=== PATIENT | female | born 1985 | race Caucasian/White ===

== ENCOUNTER 2016-09-18 16:38 | Emergency (ER) | payer MEDICAID ==
[~2016-09-18] VITALS: Ht 167.6 cm; Wt 63.6 kg
[~2016-09-18 16:38] MED LIST: IBUP-1547 PO; QUET25TA PO
[2016-09-18] MEDS ORDERED: DIAZEPAM 5 MG TABLET PO ONE (18:00)
[2016-09-18 18:21] VITALS: BP 154/91
== END 2016-09-18 19:02 | disposition home or self-care (01) ==
LOC: EMS 16:39
DX: F41.9 Anxiety disorder, unspecified (principal)
CPT/HCPCS: 99284

== ENCOUNTER 2016-11-20 18:01 | Emergency (ER) | payer MEDICAID ==
[~2016-11-20] VITALS: Ht 162.6 cm; Wt 65.9 kg
[2016-11-20 19:11] LABS: BASOPHILS % (AUTO) 0.6 % (0.0-2.0); EOSINOPHILS % (AUTO) 0.5 % (1.0-6.0); HEMATOCRIT 38.2 % (36-46); LYMPHOCYTES # (AUTO) 0.9 K/uL (1.0-4.8); LYMPHOCYTES % (AUTO) 9.8 % (22.0-44.0); MEAN CORPUSCULAR HEMOGLOBIN 29.4 pg (26.0-34.0); MEAN CORPUSCULAR VOLUME 87 fL (80-100); MONOCYTES # (AUTO) 0.6 K/uL (0.1-1.0); NEUTROPHILS # (AUTO) 7.9 K/uL (1.8-7.7); NEUTROPHILS % (AUTO) 83.1 % (40.0-70.0); PLATELET COUNT (AUTO) 258 K/uL (150-450); RED BLOOD CELL COUNT(AUTO) 4.41 MIL/uL (4.00-5.20); RED CELL DISTRIBUTION WIDTH 13.7 % (11.5-14.5); WHITE BLOOD COUNT (AUTO) 9.6 K/uL (4.5-11.0)
[2016-11-20 19:20] LABS: ANION GAP 6 mmol/L (8-16); CALCIUM, TOTAL 8.3 mg/dL (8.8-10.5); CARBON DIOXIDE 29 mmol/L (22-29); CHLORIDE 104 mmol/L (98-107); CREATININE 0.77 mg/dL (0.60-1.30); GLOMERULAR FILTR. RATE CALC > 60 mL/min (>60); POTASSIUM 3.4 mmol/L (3.5-5.1); SODIUM SERUM 139 mmol/L (136-145); UREA NITROGEN, BLOOD 8 mg/dL (7-18)
[2016-11-20 19:26] LABS: ALANINE AMINOTRANSFERASE 292 U/L (12-78); ALBUMIN 3.1 g/dL (3.4-5.0); AMYLASE 83 U/L (25-115); ASPARTATE AMINOTRANSFERASE 508 U/L (15-37); BILIRUBIN,TOTAL 0.5 mg/dL (0.1-1.0); TOTAL PROTEIN, SERUM 6.6 g/dL (6.4-8.2)
[2016-11-20 19:44] VITALS: BP 126/80
[2016-11-20 20:42] LABS: APPEARANCE,URINE TURBID (CLEAR); GLUCOSE, URINE (UA) NEGATIVE (NEGATIVE); KETONES,URINE NEGATIVE (NEGATIVE); LEUKOCYTE ESTERASE ,URINE NEGATIVE (NEGATIVE); OCCULT BLOOD,URINE NEGATIVE (NEGATIVE); PH,URINE 7.5 (5.0-8.0); PROTEIN,URINE NEGATIVE (NEGATIVE)
[2016-11-20 20:43] LABS: ADD UA MICROSCOPIC NO
[2016-11-20] MEDS ORDERED: ONDANSETRON HCL 4 MG/2 ML VIAL IM ONE (21:00)
[2016-11-20] MEDS ORDERED: ONDANSETRON HCL 4 MG TABLET PO ONE (21:15)
== END 2016-11-20 21:20 | disposition home or self-care (01) ==
LOC: EMS 18:03
DX: K80.20 Calculus of gallbladder without cholecystitis without obstruction (principal)
CPT/HCPCS: 36415; 76700; 80053; 81003; 82150; 83690; 84703; 85025; 99285; Q0162

== ENCOUNTER 2017-04-12 11:52 | Emergency (ER) | payer MEDICAID ==
[~2017-04-12] VITALS: Ht 162.6 cm; Wt 63.6 kg
[~2017-04-12 11:52] MED LIST changes: -IBUP-1547 PO
[2017-04-12] MEDS ORDERED: ONDANSETRON HCL 4 MG TABLET PO ONE (13:45)
[2017-04-12] MEDS ORDERED: HYDROCODONE/ACETAMINOPHEN 5-325 MG TABLET PO ONE ×2 (13:45→20:45)
[2017-04-12 20:30] VITALS: BP 126/86
== END 2017-04-12 21:00 | disposition home or self-care (01) ==
LOC: EMS 11:55
DX: R51 Headache (principal)
CPT/HCPCS: 70450; 81002; 81025; 99284; Q0162

== ENCOUNTER 2018-05-20 15:57 | Inpatient (IN) | payer MEDICAID, OTHER ==
[~2018-05-20] VITALS: Ht 160 cm; Wt 61.3 kg
[2018-05-20] MEDS ORDERED: LORazepam 2 MG TABLET PO PRN (18:15)
[2018-05-20] MEDS ORDERED: TUBERCULIN, PURIFIED PROTEIN DERIVATIVE 5 TU/0.1 ML SYG ID ONE (18:15)
[2018-05-20] MEDS ORDERED: OLANZapine 5 MG RAPDIS TABLET PO PRN (18:15)
[2018-05-20] MEDS ORDERED: GuaiFENesin/D-METHORPHAN [SUGAR-FREE] 200-20MG/10 ML SYRUP UDCUP PO PRN (18:15)
[2018-05-20] MEDS ORDERED: PROMETHAZINE HCL 25 MG TABLET PO PRN (18:15)
[2018-05-20] MEDS ORDERED: ZOLPIDEM TARTRATE 10 MG TABLET PO PRN (18:15)
[2018-05-20] MEDS ORDERED: MAGNESIUM HYDROXIDE SUSPENSION 30 ML UDCUP PO PRN (18:15)
[2018-05-20] MEDS ORDERED: HydrOXYzine PAMOATE 50 MG CAPSULE PO PRN (18:15)
[2018-05-20] MEDS ORDERED: ACETAMINOPHEN 325 MG TABLET PO PRN (18:15)
[2018-05-20] MEDS ORDERED: MAG HYDROX/AL HYDROX/SIMETH ES 30 ML SUSPENSION UDCUP PO PRN (18:15)
[2018-05-20] MEDS ORDERED: LOPERAMIDE HCL 2 MG CAPSULE PO PRN (18:15)
[2018-05-20 18:49] LABS: APPEARANCE,URINE CLOUDY (CLEAR); BILIRUBIN,URINE NEGATIVE (NEGATIVE); GLUCOSE, URINE (UA) NEGATIVE (NEGATIVE); KETONES,URINE NEGATIVE (NEGATIVE); LEUKOCYTE ESTERASE ,URINE NEGATIVE (NEGATIVE); NITRATE,URINE NEGATIVE (NEGATIVE); OCCULT BLOOD,URINE NEGATIVE (NEGATIVE); PH,URINE 6.5 (5.0-8.0); PROTEIN,URINE POS 1+ (NEGATIVE); UROBILINOGEN,URINE 0.2 mg/dL (<=1.0)
[2018-05-20 18:52] LABS: AMPHET/METH SCREEN,URINE POSITIVE (NEGATIVE); BARBITURATE SCREEN, URINE NEGATIVE (NEGATIVE); BENZODIAZEPINES SCREEN,URINE NEGATIVE (NEGATIVE); CANNABINOID SCREEN,URINE NEGATIVE (NEGATIVE); COCAINE SCREEN,URINE NEGATIVE (NEGATIVE); METHADONE SCREEN, URINE NEGATIVE (NEGATIVE); OPIATE SCREEN,URINE NEGATIVE (NEGATIVE)
[2018-05-20 18:54] LABS: PHENCYCLIDINE SCREEN,URINE NEGATIVE (NEGATIVE)
[2018-05-20 19:07] LABS: BACTERIA,URINE Moderate /HPF (None Seen); RBC,URINE None Seen /HPF (0-2); SQUAMOUS EPITHELIAL CELL,UR Moderate /LPF (None Seen); WBC,URINE 0-2 /HPF (0-5)
[2018-05-20 19:08] LABS: MUCUS,URINE Moderate LPF (None Seen)
[2018-05-20] MEDS: THIAMINE HCL 100 MG TABLET PO SCH (19:26)
[2018-05-20 19:39] LABS: ANION GAP 8 mmol/L (8-16); CALCIUM, TOTAL 8.6 mg/dL (8.8-10.5); CARBON DIOXIDE 28 mmol/L (22-29); CHLORIDE 104 mmol/L (98-107); CREATININE 0.78 mg/dL (0.60-1.30); GLOMERULAR FILTR. RATE CALC > 60 mL/min (>60); GLUCOSE,RANDOM 129 mg/dL (70-110); POTASSIUM 3.4 mmol/L (3.5-5.1); SODIUM SERUM 140 mmol/L (136-145); UREA NITROGEN, BLOOD 13 mg/dL (7-18)
[2018-05-20 19:51] LABS: ALANINE AMINOTRANSFERASE 29 U/L (12-78); ALBUMIN 3.4 g/dL (3.4-5.0); ALKALINE PHOSPHATASE 62 U/L (46-116); ASPARTATE AMINOTRANSFERASE 21 U/L (15-37); BILIRUBIN,TOTAL 0.2 mg/dL (0.1-1.0); HCG,QUANTITATIVE < 1 mIU/mL (0-6)
[2018-05-20] MEDS ORDERED: DiphenhydrAMINE HCL 50 MG CAPSULE PO ONE (20:15)
[2018-05-20] MEDS ORDERED: HALOPERIDOL 5 MG TABLET PO ONE (20:15)
[2018-05-20] MEDS ORDERED: LORazepam 2 MG TABLET PO ONE (20:15)
[2018-05-20 20:33] LABS: BASOPHILS % (AUTO) 1.3 % (0.0-2.0); EOSINOPHILS % (AUTO) 0.1 % (1.0-6.0); HEMATOCRIT 38.7 % (36-46); HEMOGLOBIN 13.2 g/dL (12.0-16.0); LYMPHOCYTES # (AUTO) 1.5 K/uL (1.0-4.8); MEAN CORPUSCULAR HEMOGLOBIN 29.9 pg (26.0-34.0); MEAN CORPUSCULAR HGB CONC 34.1 G/dL (31.0-37.0); MEAN CORPUSCULAR VOLUME 88 fL (80-100); MONOCYTES # (AUTO) 0.3 K/uL (0.1-1.0); MONOCYTES % (AUTO) 4.3 % (2.0-9.0); NEUTROPHILS # (AUTO) 5.6 K/uL (1.8-7.7); NEUTROPHILS % (AUTO) 74.3 % (40.0-70.0); PLATELET COUNT (AUTO) 303 K/uL (150-450); RED BLOOD CELL COUNT(AUTO) 4.42 MIL/uL (4.00-5.20)
[2018-05-20] MEDS ORDERED: POTASSIUM CHLORIDE 20 MEQ ER TABLET PO ONE (21:00)
[2018-05-20 22:12] VITALS: BP 136/101
[2018-05-20] MEDS: OLANZapine 5 MG RAPDIS TABLET PO SCH (22:28)
[2018-05-21 02:00] VITALS: BP 132/86
[2018-05-21 07:40] LABS: BASOPHILS % (AUTO) 1.4 % (0.0-2.0); EOSINOPHILS % (AUTO) 0.9 % (1.0-6.0); HEMOGLOBIN 13.3 g/dL (12.0-16.0); LYMPHOCYTES # (AUTO) 2.1 K/uL (1.0-4.8); MEAN CORPUSCULAR HEMOGLOBIN 30.6 pg (26.0-34.0); MEAN CORPUSCULAR HGB CONC 35.1 G/dL (31.0-37.0); MEAN CORPUSCULAR VOLUME 87 fL (80-100); MONOCYTES # (AUTO) 0.4 K/uL (0.1-1.0); MONOCYTES % (AUTO) 6.7 % (2.0-9.0); PLATELET COUNT (AUTO) 309 K/uL (150-450); RED BLOOD CELL COUNT(AUTO) 4.36 MIL/uL (4.00-5.20)
[2018-05-21 08:05] LABS: ALANINE AMINOTRANSFERASE 27 U/L (12-78); ALBUMIN 3.2 g/dL (3.4-5.0); ALKALINE PHOSPHATASE 61 U/L (46-116); ANION GAP 5 mmol/L (8-16); ASPARTATE AMINOTRANSFERASE 18 U/L (15-37); BILIRUBIN,TOTAL 0.3 mg/dL (0.1-1.0); CALCIUM, TOTAL 8.4 mg/dL (8.8-10.5); CARBON DIOXIDE 28 mmol/L (22-29); CHLORIDE 106 mmol/L (98-107); CHOL/HDL RATIO 3.2 (3.9-5.7); CHOLESTEROL 145 mg/dL (131-200); CREATININE 0.61 mg/dL (0.60-1.30); FREE T4 (FREE THYROXINE) 0.88 ng/dL (0.76-1.46); GLOMERULAR FILTR. RATE CALC > 60 mL/min (>60); GLUCOSE,RANDOM 82 mg/dL (70-110); HDL CHOLESTEROL 45 mg/dL (40-60); LDL CHOL (CALC.) 81 mg/dL (0-130); POTASSIUM 4.2 mmol/L (3.5-5.1); SODIUM SERUM 139 mmol/L (136-145); THYROID STIMULATING HORMONE 1.35 uIU/mL (0.36-3.74); TOTAL PROTEIN, SERUM 6.6 g/dL (6.4-8.2); TRIGLYCERIDES 93 mg/dL (15-150); UREA NITROGEN, BLOOD 12 mg/dL (7-18)
[2018-05-21] MEDS: MULTIVITAMINS WITH MINERALS, THERAPEUTIC TABLET PO SCH (08:18)
[2018-05-21] MEDS: FOLIC ACID 1 MG TABLET PO SCH (08:18)
[2018-05-21] MEDS: THIAMINE HCL 100 MG TABLET PO SCH ×2 (08:18→16:16)
[2018-05-21 08:19] VITALS: BP 130/70
[2018-05-21 16:08] VITALS: BP 119/95
[2018-05-21] MEDS: OLANZapine 5 MG RAPDIS TABLET PO SCH (20:06)
[2018-05-21] MEDS ORDERED: DIVALPROEX SODIUM 250 MG ER TABLET PO SCH (21:00)
[2018-05-22 06:36] VITALS: BP 116/73
[2018-05-22 07:10] LABS: GLUCOMETER DEV NAME(LOC) BV3N.; GLUCOSE,POINT OF CARE 110 MG/DL (70-110)
[2018-05-22 07:50] VITALS: BP 116/73
[2018-05-22] MEDS ORDERED: LORA2TAB2 PO (08:25)
[2018-05-22] MEDS ORDERED: OLAN15TA5 PO (08:25)
[2018-05-22] MEDS ORDERED: DIVA-78 PO (08:25)
[2018-05-22] MEDS: FOLIC ACID 1 MG TABLET PO SCH (09:00)
[2018-05-22] MEDS: THIAMINE HCL 100 MG TABLET PO SCH ×2 (09:00→17:00)
[2018-05-22] MEDS ORDERED: NALTREXONE HCL 50 MG TABLET PO SCH (09:00)
[2018-05-22] MEDS: MULTIVITAMINS WITH MINERALS, THERAPEUTIC TABLET PO SCH (09:00)
[2018-05-24] MEDS ORDERED: APIX5TAB4 PO (12:39)
[2018-05-24] MEDS ORDERED: DOCU100C33 PO (12:40)
== END 2018-05-22 19:03 | disposition short-term general hospital (02) | DRG 750 ==
LOC: EMS 15:58 → B3A 19:05
PROVIDERS: ADMIT Psychiatry & Neurology Psychiatry; ATTEND Psychiatry & Neurology Psychiatry
DX: F20.0 Paranoid schizophrenia (principal); Z91.19 Patient's noncompliance with other medical treatment and regimen; E87.6 Hypokalemia; F17.200 Nicotine dependence, unspecified, uncomplicated; F15.10 Other stimulant abuse, uncomplicated; F41.9 Anxiety disorder, unspecified; F60.0 Paranoid personality disorder; Z90.49 Acquired absence of other specified parts of digestive tract; Z86.718 Personal history of other venous thrombosis and embolism; Z81.8 Family history of other mental and behavioral disorders; Z65.3 Problems related to other legal circumstances; Z28.21 Immunization not carried out because of patient refusal
CPT/HCPCS: 84439; 84443; 87081; 87086; G0480

== ENCOUNTER 2018-05-25 01:05 | Inpatient (IN) | payer MEDICAID ==
[~2018-05-25] VITALS: Ht 162.6 cm; Wt 68.7 kg
[~2018-05-25 01:05] MED LIST changes: +APIX5TAB4 PO; +DIVA-78 PO; +DOCU100C33 PO; +LORA2TAB2 PO; +OLAN15TA5 PO; -QUET25TA PO
[2018-05-25 01:45] VITALS: BP 123/84
[2018-05-25] MEDS ORDERED: OLANZapine 5 MG RAPDIS TABLET PO PRN (01:45)
[2018-05-25] MEDS ORDERED: LORazepam 2 MG TABLET PO PRN (01:45)
[2018-05-25 08:35] VITALS: BP 107/59
[2018-05-25] MEDS: APIXABAN 5 MG TABLET PO SCH ×2 (10:30→16:25)
[2018-05-25 16:24] VITALS: BP 112/73
[2018-05-25] MEDS: DIVALPROEX SODIUM 250 MG DR TABLET PO SCH (20:22)
[2018-05-25] MEDS: OLANZapine 5 MG RAPDIS TABLET PO SCH (20:23)
[2018-05-26 08:41] VITALS: BP 107/70
[2018-05-26] MEDS: APIXABAN 5 MG TABLET PO SCH ×2 (09:55→16:40)
[2018-05-26 16:56] VITALS: BP 146/65
[2018-05-26] MEDS: OLANZapine 5 MG RAPDIS TABLET PO SCH (20:29)
[2018-05-26] MEDS: DIVALPROEX SODIUM 250 MG DR TABLET PO SCH (20:29)
[2018-05-27] MEDS: ZOLPIDEM TARTRATE 5 MG TABLET PO PRN ×2 (01:03→20:30)
[2018-05-27 08:34] VITALS: BP 111/69
[2018-05-27] MEDS: APIXABAN 5 MG TABLET PO SCH ×2 (08:48→16:08)
[2018-05-27] MEDS ORDERED: PROMETHAZINE HCL 25 MG TABLET PO PRN (12:45)
[2018-05-27] MEDS ORDERED: ACETAMINOPHEN 325 MG TABLET PO PRN (12:45)
[2018-05-27] MEDS ORDERED: MAGNESIUM HYDROXIDE SUSPENSION 30 ML UDCUP PO PRN (12:45)
[2018-05-27] MEDS ORDERED: MAG HYDROX/AL HYDROX/SIMETH ES 30 ML SUSPENSION UDCUP PO PRN (12:45)
[2018-05-27] MEDS ORDERED: GuaiFENesin/D-METHORPHAN [SUGAR-FREE] 200-20MG/10 ML SYRUP UDCUP PO PRN (12:45)
[2018-05-27] MEDS ORDERED: LOPERAMIDE HCL 2 MG CAPSULE PO PRN (12:45)
[2018-05-27] MEDS ORDERED: HydrOXYzine PAMOATE 50 MG CAPSULE PO PRN (12:45)
[2018-05-27] MEDS: THIAMINE HCL 100 MG TABLET PO SCH (16:09)
[2018-05-27] MEDS ORDERED: PALIPERIDONE 1.5 MG ER TABLET PO PRN (16:15)
[2018-05-27] MEDS ORDERED: PALIPERIDONE PALMITATE 234 MG/1.5 ML SYRINGE IM ONE (16:15)
[2018-05-27] MEDS ORDERED: PALI234D IM (16:18)
[2018-05-27] MEDS ORDERED: NALT50TA PO (16:18)
[2018-05-27 17:07] VITALS: BP 108/58
[2018-05-27] MEDS ORDERED: PALIPERIDONE 3 MG ER TABLET PO SCH (21:00)
[2018-05-28] MEDS ORDERED: FOLIC ACID 1 MG TABLET PO SCH (09:00)
[2018-05-28] MEDS ORDERED: MULTIVITAMINS WITH MINERALS, THERAPEUTIC TABLET PO SCH (09:00)
[2018-05-28] MEDS ORDERED: NALTREXONE HCL 50 MG TABLET PO SCH (09:00)
[2018-05-28] MEDS: APIXABAN 5 MG TABLET PO SCH (09:59)
[2018-05-28] MEDS: THIAMINE HCL 100 MG TABLET PO SCH (10:00)
[2018-05-28 10:52] VITALS: BP 115/65
[2018-06-24] MEDS ORDERED: PALIPERIDONE PALMITATE 234 MG/1.5 ML SYRINGE IM SCH (09:00)
== END 2018-05-28 14:20 | disposition home or self-care (01) | DRG 750 ==
LOC: 3EC 01:25
PROVIDERS: ADMIT Psychiatry & Neurology Psychiatry; ATTEND Psychiatry & Neurology Psychiatry
DX: F20.0 Paranoid schizophrenia (principal); Z91.19 Patient's noncompliance with other medical treatment and regimen; F12.90 Cannabis use, unspecified, uncomplicated; Z28.21 Immunization not carried out because of patient refusal; Z86.711 Personal history of pulmonary embolism; Z79.01 Long term (current) use of anticoagulants; Z86.718 Personal history of other venous thrombosis and embolism; F15.90 Other stimulant use, unspecified, uncomplicated
CPT/HCPCS: 87081

== ENCOUNTER 2019-09-23 13:39 | Emergency (ER) | payer MEDICAID, OTHER ==
[~2019-09-23] VITALS: Ht 167.6 cm; Wt 59.1 kg
[~2019-09-23 13:39] MED LIST changes: -DIVA-78 PO; -DOCU100C33 PO; -LORA2TAB2 PO; +NALT50TA PO; -OLAN15TA5 PO; +PALI234D IM
[2019-09-23 15:17] LABS: BASOPHILS % (AUTO) 2.1 % (0.0-2.0); EOSINOPHILS % (AUTO) 0.1 % (1.0-6.0); HEMATOCRIT 36.1 % (36-46); HEMOGLOBIN 12.1 g/dL (12.0-16.0); LYMPHOCYTES # (AUTO) 1.1 K/uL (1.0-4.8); MEAN CORPUSCULAR HEMOGLOBIN 29.4 pg (26.0-34.0); MEAN CORPUSCULAR HGB CONC 33.4 G/dL (31.0-37.0); MEAN CORPUSCULAR VOLUME 88 fL (80-100); MONOCYTES # (AUTO) 0.4 K/uL (0.1-1.0); MONOCYTES % (AUTO) 6.8 % (2.0-9.0); NEUTROPHILS # (AUTO) 4.7 K/uL (1.8-7.7); PLATELET COUNT (AUTO) 297 K/uL (150-450); RED CELL DISTRIBUTION WIDTH 13.3 % (11.5-14.5)
[2019-09-23 15:31] LABS: ANION GAP 11 mmol/L (8-16); CALCIUM, TOTAL 8.7 mg/dL (8.8-10.5); CARBON DIOXIDE 24 mmol/L (22-29); CHLORIDE 104 mmol/L (98-107); CREATININE 0.73 mg/dL (0.60-1.30); GLOMERULAR FILTR. RATE CALC > 60 mL/min (>60); GLUCOSE,RANDOM 123 mg/dL (70-110); POTASSIUM 3.6 mmol/L (3.5-5.1); SODIUM SERUM 139 mmol/L (136-145); UREA NITROGEN, BLOOD 11 mg/dL (7-18)
[2019-09-23 15:36] LABS: ALANINE AMINOTRANSFERASE 21 U/L (12-78); ALBUMIN 3.4 g/dL (3.4-5.0); ALKALINE PHOSPHATASE 69 U/L (46-116); ASPARTATE AMINOTRANSFERASE 19 U/L (15-37); BILIRUBIN,TOTAL 0.4 mg/dL (0.1-1.0); TOTAL PROTEIN, SERUM 6.6 g/dL (6.4-8.2)
[2019-09-23 17:15] LABS: APPEARANCE,URINE CLOUDY (CLEAR); GLUCOSE, URINE (UA) NEGATIVE (NEGATIVE); KETONES,URINE TRACE mg/dL (NEGATIVE); LEUKOCYTE ESTERASE ,URINE SMALL (NEGATIVE); NITRATE,URINE NEGATIVE (NEGATIVE); OCCULT BLOOD,URINE NEGATIVE (NEGATIVE); PH,URINE 5.5 (5.0-8.0); PROTEIN,URINE NEGATIVE (NEGATIVE)
[2019-09-23 17:16] LABS: BILIRUBIN,URINE PRELIM. POSITIVE (NEGATIVE)
[2019-09-23 17:23] LABS: AMPHET/METH SCREEN,URINE POSITIVE (NEGATIVE); BARBITURATE SCREEN, URINE NEGATIVE (NEGATIVE); BENZODIAZEPINES SCREEN,URINE NEGATIVE (NEGATIVE); CANNABINOID SCREEN,URINE NEGATIVE (NEGATIVE); COCAINE SCREEN,URINE NEGATIVE (NEGATIVE); METHADONE SCREEN, URINE NEGATIVE (NEGATIVE); OPIATE SCREEN,URINE NEGATIVE (NEGATIVE); RBC,URINE 0-2 /HPF (0-2)
[2019-09-23 17:24] LABS: BACTERIA,URINE Moderate /HPF (None Seen); PHENCYCLIDINE SCREEN,URINE NEGATIVE (NEGATIVE); SQUAMOUS EPITHELIAL CELL,UR Moderate /LPF (None Seen)
[2019-09-23] MEDS ORDERED: LORazepam 2 MG TABLET PO ONE (17:45)
[2019-09-23 17:55] VITALS: BP 132/78
== END 2019-09-23 18:22 | disposition home or self-care (01) ==
LOC: EMS 13:51
DX: F52.9 Unspecified sexual dysfunction not due to a substance or known physiological condition (principal); F15.10 Other stimulant abuse, uncomplicated; L01.00 Impetigo, unspecified; Z59.0 Homelessness
CPT/HCPCS: 36415; 80053; 80307; 81001; 85025; 87086; 99284; G0480

== ENCOUNTER 2020-02-01 13:34 | Inpatient (IN) | payer MEDICAID, OTHER ==
[~2020-02-01] VITALS: Ht 167.6 cm; Wt 51.4 kg
[2020-02-01] MEDS ORDERED: HALOPERIDOL LACTATE 5 MG/ML VIAL IM ONE (15:15)
[2020-02-01] MEDS ORDERED: DiphenhydrAMINE HCL 50 MG/ML VIAL IM ONE (15:15)
[2020-02-01] MEDS ORDERED: LORazepam 2 MG/ML VIAL IM ONE (15:15)
[2020-02-01 16:32] LABS: BASOPHILS % (AUTO) 1.1 % (0.0-2.0); EOSINOPHILS % (AUTO) 0.3 % (1.0-6.0); HEMATOCRIT 39.5 % (36-46); HEMOGLOBIN 12.9 g/dL (12.0-16.0); LYMPHOCYTES # (AUTO) 1.5 K/uL (1.0-4.8); LYMPHOCYTES % (AUTO) 27.7 % (22.0-44.0); MEAN CORPUSCULAR HEMOGLOBIN 28.3 pg (26.0-34.0); MEAN CORPUSCULAR HGB CONC 32.6 G/dL (31.0-37.0); MEAN CORPUSCULAR VOLUME 87 fL (80-100); MONOCYTES # (AUTO) 0.4 K/uL (0.1-1.0); MONOCYTES % (AUTO) 7.2 % (2.0-9.0); NEUTROPHILS # (AUTO) 3.6 K/uL (1.8-7.7); NEUTROPHILS % (AUTO) 63.7 % (40.0-70.0); PLATELET COUNT (AUTO) 286 K/uL (150-450); RED BLOOD CELL COUNT(AUTO) 4.56 MIL/uL (4.00-5.20); RED CELL DISTRIBUTION WIDTH 13.4 % (11.5-14.5)
[2020-02-01 16:45] LABS: ANION GAP 5 mmol/L (8-16); CARBON DIOXIDE 25 mmol/L (22-29); CHLORIDE 104 mmol/L (98-107); CREATININE 0.73 mg/dL (0.60-1.30); GLOMERULAR FILTR. RATE CALC > 60 mL/min (>60); GLUCOSE,RANDOM 83 mg/dL (70-110); POTASSIUM 3.6 mmol/L (3.5-5.1); SODIUM SERUM 134 mmol/L (136-145); UREA NITROGEN, BLOOD 14 mg/dL (7-18)
[2020-02-01 16:51] LABS: ALANINE AMINOTRANSFERASE 24 U/L (12-78); ALBUMIN 3.6 g/dL (3.4-5.0); ALKALINE PHOSPHATASE 99 U/L (46-116); ASPARTATE AMINOTRANSFERASE 17 U/L (15-37); BILIRUBIN,TOTAL 0.6 mg/dL (0.1-1.0); TOTAL PROTEIN, SERUM 7.4 g/dL (6.4-8.2)
[2020-02-01 18:20] LABS: HCG,QUANTITATIVE 1 mIU/mL (0-6)
[2020-02-01] MEDS ORDERED: LORazepam 2 MG TABLET PO PRN (19:30)
[2020-02-01] MEDS ORDERED: ZOLPIDEM TARTRATE 10 MG TABLET PO PRN (19:30)
[2020-02-01] MEDS ORDERED: HALOPERIDOL 5 MG TABLET PO PRN (19:30)
[2020-02-02 02:42] VITALS: BP 112/63
[2020-02-02] MEDS ORDERED: PETROLATUM,WHITE 28 GM JELLY TP PRN (07:30)
[2020-02-02] MEDS ORDERED: CloNIDine HCL 0.1 MG TABLET PO PRN (07:30)
[2020-02-02] MEDS ORDERED: MAG HYDROX/AL HYDROX/SIMETH ES 30 ML SUSPENSION UDCUP PO PRN (07:30)
[2020-02-02] MEDS ORDERED: GuaiFENesin/D-METHORPHAN [SUGAR-FREE] 200-20MG/10 ML SYRUP UDCUP PO PRN (07:30)
[2020-02-02] MEDS ORDERED: MAGNESIUM HYDROXIDE SUSPENSION 30 ML UDCUP PO PRN (07:30)
[2020-02-02] MEDS ORDERED: NICOTINE 14 MG/24 HOUR PATCH TD PRN (07:30)
[2020-02-02] MEDS ORDERED: ONDANSETRON HCL 4 MG TABLET PO PRN (07:30)
[2020-02-02] MEDS ORDERED: IBUPROFEN 400 MG TABLET PO PRN (07:30)
[2020-02-02] MEDS ORDERED: LOPERAMIDE HCL 2 MG CAPSULE PO PRN (07:30)
[2020-02-02] MEDS ORDERED: ALBUTEROL SULFATE HFA 90 MCG/PUFF 8 GM INHALER IH PRN (07:30)
[2020-02-02] MEDS ORDERED: ACETAMINOPHEN 325 MG TABLET PO PRN (07:30)
[2020-02-02] MEDS ORDERED: DOCUSATE SODIUM 100 MG CAPSULE PO PRN (07:30)
[2020-02-02 08:10] LABS: CHOL/HDL RATIO 2.4 (3.9-5.7)
[2020-02-02 08:17] VITALS: BP 103/64
[2020-02-02] MEDS: APIXABAN 5 MG TABLET PO SCH ×2 (12:51→17:55)
[2020-02-02] MEDS ORDERED: OLANZapine 5 MG RAPDIS TABLET PO PRN (15:15)
[2020-02-02] MEDS ORDERED: ZOLPIDEM TARTRATE 10 MG TABLET PO PRN (15:15)
[2020-02-02 16:05] VITALS: BP 115/65
[2020-02-02] MEDS: DIVALPROEX SODIUM 500 MG DR TABLET PO SCH (17:55)
[2020-02-02] MEDS: OLANZapine 5 MG RAPDIS TABLET PO SCH (20:44)
[2020-02-03 01:50] VITALS: BP 110/68
[2020-02-03] MEDS: DIVALPROEX SODIUM 500 MG DR TABLET PO SCH ×2 (08:22→17:17)
[2020-02-03] MEDS: APIXABAN 5 MG TABLET PO SCH ×2 (08:23→17:17)
[2020-02-03 08:27] VITALS: BP 107/67
[2020-02-03 16:11] VITALS: BP 109/61
[2020-02-03] MEDS: OLANZapine 5 MG RAPDIS TABLET PO SCH (21:18)
[2020-02-04 04:00] VITALS: BP 104/68
[2020-02-04] MEDS: DIVALPROEX SODIUM 500 MG DR TABLET PO SCH ×2 (08:17→17:04)
[2020-02-04] MEDS: APIXABAN 5 MG TABLET PO SCH ×2 (08:17→17:04)
[2020-02-04 08:22] VITALS: BP 109/66
[2020-02-04 16:04] VITALS: BP 102/62
[2020-02-04] MEDS: OLANZapine 5 MG RAPDIS TABLET PO SCH (20:34)
[2020-02-05 03:29] VITALS: BP 104/64
[2020-02-05 08:07] VITALS: BP 119/87
[2020-02-05] MEDS: DIVALPROEX SODIUM 500 MG DR TABLET PO SCH ×2 (08:23→16:40)
[2020-02-05] MEDS: APIXABAN 5 MG TABLET PO SCH ×2 (08:24→16:40)
[2020-02-05 16:01] VITALS: BP 124/67
[2020-02-05] MEDS: OLANZapine 5 MG RAPDIS TABLET PO SCH (20:22)
[2020-02-06 02:34] VITALS: BP 120/72
[2020-02-06] MEDS: APIXABAN 5 MG TABLET PO SCH (08:29)
[2020-02-06] MEDS: DIVALPROEX SODIUM 500 MG DR TABLET PO SCH (08:29)
[2020-02-06 08:52] VITALS: BP 133/81
[2020-02-06] MEDS ORDERED: DIVA-112 PO (13:46)
[2020-02-06] MEDS ORDERED: APIX5TAB PO (13:46)
[2020-02-06] MEDS ORDERED: OLAN5TAB40 PO (13:46)
== END 2020-02-06 14:00 | disposition left against medical advice (07) | DRG 750 ==
LOC: EMS 14:38 → B3A 19:23
PROVIDERS: ADMIT Psychiatry & Neurology Child & Adolescent Psychiatry; ATTEND Psychiatry & Neurology Child & Adolescent Psychiatry
DX: F25.9 Schizoaffective disorder, unspecified (principal); K21.9 Gastro-esophageal reflux disease without esophagitis; F17.200 Nicotine dependence, unspecified, uncomplicated; E87.1 Hypo-osmolality and hyponatremia; F15.10 Other stimulant abuse, uncomplicated; F41.9 Anxiety disorder, unspecified; Z86.711 Personal history of pulmonary embolism; Z86.718 Personal history of other venous thrombosis and embolism; Z03.818 Encounter for observation for suspected exposure to other biological agents ruled out
CPT/HCPCS: 87081; 87426; G0480; J1200; J1630; J2060

== ENCOUNTER 2020-02-22 08:18 | Emergency (ER) | payer MEDICAID, OTHER ==
[~2020-02-22] VITALS: Ht 167.6 cm; Wt 59.1 kg
[~2020-02-22 08:18] MED LIST changes: +APIX5TAB PO; -APIX5TAB4 PO; -NALT50TA PO; -PALI234D IM
[2020-02-22] MEDS ORDERED: DiphenhydrAMINE HCL 50 MG/ML VIAL IM ONE (08:45)
[2020-02-22] MEDS ORDERED: LORazepam 2 MG/ML VIAL IM ONE (08:45)
[2020-02-22] MEDS ORDERED: HALOPERIDOL LACTATE 5 MG/ML VIAL IM ONE (08:45)
[2020-02-22 10:23] LABS: COVID AG,FIA SOURCE NASOPHARYNGEAL
[2020-02-22 10:42] LABS: AMPHET/METH SCREEN,URINE POSITIVE (NEGATIVE); BARBITURATE SCREEN, URINE NEGATIVE (NEGATIVE); BENZODIAZEPINES SCREEN,URINE NEGATIVE (NEGATIVE); CANNABINOID SCREEN,URINE NEGATIVE (NEGATIVE); COCAINE SCREEN,URINE NEGATIVE (NEGATIVE); METHADONE SCREEN, URINE NEGATIVE (NEGATIVE); OPIATE SCREEN,URINE NEGATIVE (NEGATIVE)
[2020-02-22 10:48] LABS: PHENCYCLIDINE SCREEN,URINE NEGATIVE (NEGATIVE)
[2020-02-22 11:18] LABS: EOSINOPHILS % (AUTO) 0.3 % (1.0-6.0); HEMATOCRIT 38.8 % (36-46); HEMOGLOBIN 13.2 g/dL (12.0-16.0); LYMPHOCYTES # (AUTO) 1.1 K/uL (1.0-4.8); LYMPHOCYTES % (AUTO) 15.4 % (22.0-44.0); MEAN CORPUSCULAR HEMOGLOBIN 29.4 pg (26.0-34.0); MEAN CORPUSCULAR HGB CONC 33.9 G/dL (31.0-37.0); MEAN CORPUSCULAR VOLUME 87 fL (80-100); MONOCYTES # (AUTO) 0.4 K/uL (0.1-1.0); MONOCYTES % (AUTO) 6.2 % (2.0-9.0); NEUTROPHILS # (AUTO) 5.4 K/uL (1.8-7.7); NEUTROPHILS % (AUTO) 77.1 % (40.0-70.0); PLATELET COUNT (AUTO) 296 K/uL (150-450); RED BLOOD CELL COUNT(AUTO) 4.47 MIL/uL (4.00-5.20); RED CELL DISTRIBUTION WIDTH 13.8 % (11.5-14.5)
[2020-02-22 11:21] LABS: ANION GAP 8 mmol/L (8-16); CALCIUM, TOTAL 8.3 mg/dL (8.8-10.5); CARBON DIOXIDE 27 mmol/L (22-29); CHLORIDE 101 mmol/L (98-107); CREATININE 0.66 mg/dL (0.60-1.30); GLOMERULAR FILTR. RATE CALC > 60 mL/min (>60); GLUCOSE,RANDOM 96 mg/dL (70-110); POTASSIUM 3.4 mmol/L (3.5-5.1); SODIUM SERUM 136 mmol/L (136-145); UREA NITROGEN, BLOOD 8 mg/dL (7-18)
[2020-02-22 11:32] LABS: ALANINE AMINOTRANSFERASE 22 U/L (12-78); ALBUMIN 3.5 g/dL (3.4-5.0); ALKALINE PHOSPHATASE 96 U/L (46-116); ASPARTATE AMINOTRANSFERASE 23 U/L (15-37); BILIRUBIN,TOTAL 0.4 mg/dL (0.1-1.0); HCG,QUANTITATIVE 2 mIU/mL (0-6); TOTAL PROTEIN, SERUM 6.7 g/dL (6.4-8.2)
[2020-02-22 16:15] VITALS: BP 116/82
== END 2020-02-22 18:00 | disposition home or self-care (01) ==
LOC: EMS 08:20
DX: F20.9 Schizophrenia, unspecified (principal); F15.10 Other stimulant abuse, uncomplicated; F41.9 Anxiety disorder, unspecified; Z20.828 Contact with and (suspected) exposure to other viral communicable diseases; Z90.89 Acquired absence of other organs
CPT/HCPCS: 36415; 80053; 80307; 84702; 85025; 87426; 96372; 99285; G0480; J1200; J1630; J2060

== ENCOUNTER 2020-08-18 14:47 | Inpatient (IN) | payer MEDICAID, OTHER ==
[~2020-08-18] VITALS: Ht 162.6 cm; Wt 57.8 kg
[2020-08-18] MEDS ORDERED: LORazepam 2 MG/ML VIAL ONE (14:57)
[2020-08-18] MEDS ORDERED: HALOPERIDOL LACTATE 5 MG/ML VIAL ONE (14:57)
[2020-08-18] MEDS ORDERED: DiphenhydrAMINE HCL 50 MG/ML VIAL ONE (14:57)
[2020-08-18] MEDS ORDERED: DiphenhydrAMINE HCL 50 MG/ML VIAL IM ONE (15:00)
[2020-08-18] MEDS ORDERED: LORazepam 2 MG/ML VIAL IM ONE (15:00)
[2020-08-18] MEDS ORDERED: HALOPERIDOL LACTATE 5 MG/ML VIAL IM ONE (15:00)
[2020-08-18 16:38] LABS: BASOPHILS % (AUTO) 2.7 % (0.0-2.0); EOSINOPHILS % (AUTO) 1.3 % (1.0-6.0); HEMATOCRIT 37.9 % (36-46); HEMOGLOBIN 12.4 g/dL (12.0-16.0); LYMPHOCYTES # (AUTO) 1.4 K/uL (1.0-4.8); MEAN CORPUSCULAR HEMOGLOBIN 27.9 pg (26.0-34.0); MEAN CORPUSCULAR HGB CONC 32.6 G/dL (31.0-37.0); MEAN CORPUSCULAR VOLUME 86 fL (80-100); MONOCYTES # (AUTO) 0.5 K/uL (0.1-1.0); MONOCYTES % (AUTO) 7.1 % (2.0-9.0); NEUTROPHILS # (AUTO) 4.4 K/uL (1.8-7.7); NEUTROPHILS % (AUTO) 67.9 % (40.0-70.0); PLATELET COUNT (AUTO) 289 K/uL (150-450); RED BLOOD CELL COUNT(AUTO) 4.43 MIL/uL (4.00-5.20)
[2020-08-18] MEDS ORDERED: HALOPERIDOL 5 MG TABLET PO PRN (16:45)
[2020-08-18 16:51] LABS: ANION GAP 11 mmol/L (8-16); CALCIUM, TOTAL 8.3 mg/dL (8.8-10.5); CARBON DIOXIDE 22 mmol/L (22-29); CHLORIDE 108 mmol/L (98-107); CREATININE 0.67 mg/dL (0.60-1.30); GLOMERULAR FILTR. RATE CALC > 60 mL/min (>60); GLUCOSE,RANDOM 87 mg/dL (70-110); POTASSIUM 3.5 mmol/L (3.5-5.1); SODIUM SERUM 141 mmol/L (136-145); UREA NITROGEN, BLOOD 21 mg/dL (7-18)
[2020-08-18 16:59] LABS: ALANINE AMINOTRANSFERASE 28 U/L (12-78); ALBUMIN 3.5 g/dL (3.4-5.0); ALKALINE PHOSPHATASE 83 U/L (46-116); ASPARTATE AMINOTRANSFERASE 26 U/L (15-37); BILIRUBIN,TOTAL 0.5 mg/dL (0.1-1.0); TOTAL PROTEIN, SERUM 7.1 g/dL (6.4-8.2)
[2020-08-18 20:14] LABS: COVID AG,FIA SOURCE NASOPHARYNGEAL
[2020-08-18] MEDS: OLANZapine 5 MG RAPDIS TABLET PO SCH (21:00)
[2020-08-19 03:00] VITALS: BP 117/68
[2020-08-19] MEDS ORDERED: GuaiFENesin/D-METHORPHAN [SUGAR-FREE] 200-20MG/10 ML SYRUP UDCUP PO PRN (08:30)
[2020-08-19] MEDS ORDERED: MAG HYDROX/AL HYDROX/SIMETH ES 30 ML SUSPENSION UDCUP PO PRN (08:30)
[2020-08-19] MEDS ORDERED: ACETAMINOPHEN 325 MG TABLET PO PRN (08:30)
[2020-08-19] MEDS ORDERED: PETROLATUM,WHITE 28 GM JELLY TP PRN (08:30)
[2020-08-19] MEDS ORDERED: MAGNESIUM HYDROXIDE SUSPENSION 30 ML UDCUP PO PRN (08:30)
[2020-08-19] MEDS ORDERED: CloNIDine HCL 0.1 MG TABLET PO PRN (08:30)
[2020-08-19] MEDS ORDERED: IBUPROFEN 400 MG TABLET PO PRN (08:30)
[2020-08-19] MEDS ORDERED: ALBUTEROL SULFATE HFA 90 MCG/PUFF 8 GM INHALER IH PRN (08:30)
[2020-08-19] MEDS ORDERED: NICOTINE 14 MG/24 HOUR PATCH TD PRN (08:30)
[2020-08-19] MEDS ORDERED: DOCUSATE SODIUM 100 MG CAPSULE PO PRN (08:30)
[2020-08-19] MEDS ORDERED: ONDANSETRON HCL 4 MG TABLET PO PRN (08:30)
[2020-08-19] MEDS ORDERED: LOPERAMIDE HCL 2 MG CAPSULE PO PRN (08:30)
[2020-08-19] MEDS: OLANZapine 5 MG RAPDIS TABLET PO SCH ×2 (09:00→17:02)
[2020-08-19] MEDS: APIXABAN 5 MG TABLET PO SCH ×2 (11:58→17:02)
[2020-08-19 16:05] VITALS: BP 121/86
[2020-08-19] MEDS: ZOLPIDEM TARTRATE 10 MG TABLET PO PRN (20:17)
[2020-08-20 00:17] VITALS: BP 116/86
[2020-08-20] MEDS: APIXABAN 5 MG TABLET PO SCH ×2 (08:26→17:15)
[2020-08-20] MEDS: OLANZapine 5 MG RAPDIS TABLET PO SCH ×2 (08:26→17:15)
[2020-08-20 16:21] VITALS: BP 112/66
[2020-08-21 01:45] VITALS: BP 116/71
[2020-08-21 08:08] VITALS: BP 111/77
[2020-08-21] MEDS: OLANZapine 5 MG RAPDIS TABLET PO SCH ×2 (08:23→16:09)
[2020-08-21] MEDS: APIXABAN 5 MG TABLET PO SCH ×2 (08:23→16:09)
[2020-08-21] MEDS: LORazepam 2 MG TABLET PO PRN ×2 (08:37→19:47)
[2020-08-21 16:06] VITALS: BP 133/84
[2020-08-22 04:44] VITALS: BP 126/76
[2020-08-22 08:09] VITALS: BP 127/87
[2020-08-22] MEDS: APIXABAN 5 MG TABLET PO SCH ×2 (08:32→16:07)
[2020-08-22] MEDS: OLANZapine 5 MG RAPDIS TABLET PO SCH ×2 (08:32→16:07)
[2020-08-22] MEDS: LORazepam 2 MG TABLET PO PRN (16:13)
[2020-08-22 16:24] VITALS: BP 109/68
[2020-08-23 03:30] VITALS: BP 116/70
[2020-08-23] MEDS: OLANZapine 5 MG RAPDIS TABLET PO SCH ×2 (08:01→16:18)
[2020-08-23] MEDS: APIXABAN 5 MG TABLET PO SCH ×2 (08:01→16:18)
[2020-08-23 08:04] VITALS: BP 131/65
[2020-08-23 16:06] VITALS: BP 115/68
[2020-08-23] MEDS: LORazepam 2 MG TABLET PO PRN (20:43)
[2020-08-23] MEDS: ZOLPIDEM TARTRATE 10 MG TABLET PO PRN (20:43)
[2020-08-24 00:28] VITALS: BP 106/66
[2020-08-24] MEDS: LORazepam 2 MG TABLET PO PRN ×2 (08:02→21:19)
[2020-08-24] MEDS: OLANZapine 5 MG RAPDIS TABLET PO SCH ×2 (08:02→17:22)
[2020-08-24] MEDS: APIXABAN 5 MG TABLET PO SCH ×2 (08:02→17:16)
[2020-08-24 08:20] VITALS: BP 123/81
[2020-08-24 16:54] VITALS: BP 112/81
[2020-08-24] MEDS: ZOLPIDEM TARTRATE 10 MG TABLET PO PRN (21:19)
[2020-08-25 01:45] VITALS: BP 117/72
[2020-08-25] MEDS ORDERED: LORazepam 2 MG/ML VIAL IM ONE (07:00)
[2020-08-25] MEDS ORDERED: HALOPERIDOL LACTATE 5 MG/ML VIAL IM ONE (07:00)
[2020-08-25] MEDS ORDERED: DiphenhydrAMINE HCL 50 MG/ML VIAL IM ONE (07:00)
[2020-08-25] MEDS: OLANZapine 5 MG RAPDIS TABLET PO SCH ×2 (08:31→10:30)
[2020-08-25] MEDS: APIXABAN 5 MG TABLET PO SCH ×3 (08:31→16:08)
[2020-08-25] MEDS: OLANZapine 7.5 MG TABLET PO SCH (16:08)
[2020-08-25 16:29] VITALS: BP 115/67
[2020-08-25] MEDS: LORazepam 2 MG TABLET PO PRN (21:56)
[2020-08-25] MEDS: ZOLPIDEM TARTRATE 10 MG TABLET PO PRN (21:56)
[2020-08-26 00:15] VITALS: BP 110/71
[2020-08-26 08:11] VITALS: BP 113/66
[2020-08-26] MEDS: OLANZapine 7.5 MG TABLET PO SCH ×2 (08:12→17:05)
[2020-08-26] MEDS: LORazepam 2 MG TABLET PO PRN (08:12)
[2020-08-26] MEDS: APIXABAN 5 MG TABLET PO SCH ×2 (08:13→17:05)
[2020-08-26 16:31] VITALS: BP 107/68
[2020-08-27 02:09] VITALS: BP 102/66
[2020-08-27 08:23] VITALS: BP 118/66
[2020-08-27 08:26] LABS: FREE T4 (FREE THYROXINE) 0.7 ng/dL (0.76-1.46); THYROID STIMULATING HORMONE 1.55 uIU/mL (0.36-3.74)
[2020-08-27] MEDS: OLANZapine 7.5 MG TABLET PO SCH (09:21)
[2020-08-27] MEDS: APIXABAN 5 MG TABLET PO SCH (09:21)
[2020-08-27] MEDS ORDERED: OLAN7.5T2 PO (11:22)
[2020-08-27] MEDS ORDERED: OLANZapine 7.5 MG TABLET PO SCH (17:00)
== END 2020-08-27 17:31 | disposition home or self-care (01) | DRG 750 ==
LOC: EMS 14:55 → B3A 16:45
PROVIDERS: ADMIT Psychiatry & Neurology Psychiatry; ATTEND Psychiatry & Neurology Psychiatry
DX: F25.1 Schizoaffective disorder, depressive type (principal); K86.1 Other chronic pancreatitis; K21.9 Gastro-esophageal reflux disease without esophagitis; F17.200 Nicotine dependence, unspecified, uncomplicated; E86.0 Dehydration; F15.90 Other stimulant use, unspecified, uncomplicated; Z59.0 Homelessness; Z79.01 Long term (current) use of anticoagulants; Z86.718 Personal history of other venous thrombosis and embolism; F41.9 Anxiety disorder, unspecified; Z20.822 Contact with and (suspected) exposure to COVID-19
CPT/HCPCS: 84439; 84443; 87426; 99291; G0480; J1200; J1630; J2060

== ENCOUNTER 2020-10-21 12:18 | Inpatient (IN) | payer MEDICAID, OTHER ==
[~2020-10-21] VITALS: Ht 165.1 cm; Wt 54.9 kg
[~2020-10-21 12:18] MED LIST changes: -APIX5TAB PO; +OLAN7.5T22 PO
[2020-10-21] MEDS ORDERED: LORazepam 2 MG/ML VIAL IM ONE (12:30)
[2020-10-21] MEDS ORDERED: DiphenhydrAMINE HCL 50 MG/ML VIAL IM ONE (12:30)
[2020-10-21] MEDS ORDERED: HALOPERIDOL LACTATE 5 MG/ML VIAL IM ONE (12:30)
[2020-10-21 13:45] LABS: COVID AG,FIA SOURCE NASOPHARYNGEAL
[2020-10-21 14:30] LABS: BASOPHILS % (AUTO) 1.7 % (0.0-2.0); EOSINOPHILS % (AUTO) 1.9 % (1.0-6.0); HEMATOCRIT 38.8 % (36-46); HEMOGLOBIN 12.7 g/dL (12.0-16.0); LYMPHOCYTES # (AUTO) 1.4 K/uL (1.0-4.8); LYMPHOCYTES % (AUTO) 23.5 % (22.0-44.0); MEAN CORPUSCULAR HEMOGLOBIN 27.8 pg (26.0-34.0); MEAN CORPUSCULAR HGB CONC 32.8 G/dL (31.0-37.0); MEAN CORPUSCULAR VOLUME 85 fL (80-100); MONOCYTES # (AUTO) 0.4 K/uL (0.1-1.0); MONOCYTES % (AUTO) 7.2 % (2.0-9.0); NEUTROPHILS % (AUTO) 65.7 % (40.0-70.0); PLATELET COUNT (AUTO) 301 K/uL (150-450); RED BLOOD CELL COUNT(AUTO) 4.57 MIL/uL (4.00-5.20)
[2020-10-21 14:39] LABS: ANION GAP 9 mmol/L (8-16); CALCIUM, TOTAL 8.7 mg/dL (8.8-10.5); CARBON DIOXIDE 26 mmol/L (22-29); CHLORIDE 105 mmol/L (98-107); CREATININE 0.82 mg/dL (0.60-1.30); GLOMERULAR FILTR. RATE CALC > 60 mL/min (>60); GLUCOSE,RANDOM 83 mg/dL (70-110); POTASSIUM 3.5 mmol/L (3.5-5.1); SODIUM SERUM 140 mmol/L (136-145); UREA NITROGEN, BLOOD 16 mg/dL (7-18)
[2020-10-21 14:46] LABS: ALANINE AMINOTRANSFERASE 28 U/L (12-78); ALBUMIN 3.5 g/dL (3.4-5.0); ALKALINE PHOSPHATASE 98 U/L (46-116); ASPARTATE AMINOTRANSFERASE 28 U/L (15-37); BILIRUBIN,TOTAL 0.3 mg/dL (0.1-1.0); TOTAL PROTEIN, SERUM 7.3 g/dL (6.4-8.2)
[2020-10-21] MEDS ORDERED: HALOPERIDOL 5 MG TABLET PO PRN (15:30)
[2020-10-21] MEDS ORDERED: ZOLPIDEM TARTRATE 10 MG TABLET PO PRN (15:30)
[2020-10-21] MEDS: OLANZapine 10 MG TABLET PO SCH (17:16)
[2020-10-21 22:28] VITALS: BP 122/71
[2020-10-21 22:29] VITALS: BP 122/71
[2020-10-22 04:15] VITALS: BP 116/68
[2020-10-22] MEDS ORDERED: ALBUTEROL SULFATE HFA 90 MCG/PUFF 8 GM INHALER IH PRN (08:00)
[2020-10-22] MEDS ORDERED: NICOTINE 14 MG/24 HOUR PATCH TD PRN (08:00)
[2020-10-22] MEDS ORDERED: MAGNESIUM HYDROXIDE SUSPENSION 30 ML UDCUP PO PRN (08:00)
[2020-10-22] MEDS ORDERED: MAG HYDROX/AL HYDROX/SIMETH ES 30 ML SUSPENSION UDCUP PO PRN (08:00)
[2020-10-22] MEDS ORDERED: CloNIDine HCL 0.1 MG TABLET PO PRN (08:00)
[2020-10-22] MEDS ORDERED: GuaiFENesin/D-METHORPHAN [SUGAR-FREE] 200-20MG/10 ML SYRUP UDCUP PO PRN (08:00)
[2020-10-22] MEDS ORDERED: ACETAMINOPHEN 325 MG TABLET PO PRN (08:00)
[2020-10-22] MEDS ORDERED: PETROLATUM,WHITE 28 GM JELLY TP PRN (08:00)
[2020-10-22] MEDS ORDERED: IBUPROFEN 400 MG TABLET PO PRN (08:00)
[2020-10-22] MEDS ORDERED: DOCUSATE SODIUM 100 MG CAPSULE PO PRN (08:00)
[2020-10-22] MEDS ORDERED: LOPERAMIDE HCL 2 MG CAPSULE PO PRN (08:00)
[2020-10-22] MEDS ORDERED: ONDANSETRON HCL 4 MG TABLET PO PRN (08:00)
[2020-10-22] MEDS: OLANZapine 10 MG TABLET PO SCH (08:39)
[2020-10-22] MEDS: LORazepam 2 MG TABLET PO PRN (08:39)
[2020-10-22] MEDS: OLANZapine 5 MG TABLET PO SCH (16:15)
[2020-10-23 06:08] VITALS: BP 115/68
[2020-10-23 08:12] VITALS: BP 112/66
[2020-10-23] MEDS: OLANZapine 5 MG TABLET PO SCH ×2 (08:55→17:17)
[2020-10-23] MEDS: LORazepam 2 MG TABLET PO PRN (08:55)
[2020-10-23 16:06] VITALS: BP 115/65
[2020-10-24 04:05] VITALS: BP 109/68
[2020-10-24 08:11] VITALS: BP 118/69
[2020-10-24] MEDS: OLANZapine 5 MG TABLET PO SCH ×2 (08:34→16:20)
[2020-10-24 16:08] VITALS: BP 119/68
[2020-10-25 01:01] VITALS: BP 123/76
[2020-10-25] MEDS: LORazepam 2 MG TABLET PO PRN (08:12)
[2020-10-25] MEDS: OLANZapine 5 MG TABLET PO SCH ×2 (08:12→15:59)
[2020-10-25 16:16] VITALS: BP 115/68
[2020-10-26] MEDS: OLANZapine 5 MG TABLET PO SCH ×2 (08:22→16:36)
[2020-10-26 16:10] VITALS: BP 116/69
[2020-10-26] MEDS: LORazepam 2 MG TABLET PO PRN (20:44)
[2020-10-27 01:49] VITALS: BP 115/71
[2020-10-27 08:15] VITALS: BP 119/72
[2020-10-27] MEDS: LORazepam 2 MG TABLET PO PRN (09:11)
[2020-10-27] MEDS: OLANZapine 5 MG TABLET PO SCH (09:11)
== END 2020-10-27 13:00 | disposition home or self-care (01) | DRG 750 ==
LOC: EMS 12:18 → B3A 16:50
PROVIDERS: ADMIT Psychiatry & Neurology Psychiatry; ATTEND Psychiatry & Neurology Psychiatry
DX: F25.1 Schizoaffective disorder, depressive type (principal); E46 Unspecified protein-calorie malnutrition; K86.1 Other chronic pancreatitis; Z78.1 Physical restraint status; F15.90 Other stimulant use, unspecified, uncomplicated; F41.9 Anxiety disorder, unspecified; Z20.822 Contact with and (suspected) exposure to COVID-19; K21.9 Gastro-esophageal reflux disease without esophagitis; Z86.718 Personal history of other venous thrombosis and embolism; Z68.20 Body mass index [BMI] 20.0-20.9, adult; Z79.899 Other long term (current) drug therapy; Z90.49 Acquired absence of other specified parts of digestive tract
CPT/HCPCS: 80053; 85025; 99291; G0480; J1200; J1630; J2060

== ENCOUNTER 2023-01-20 13:04 | Emergency (ER) | payer MEDICAID, OTHER ==
[~2023-01-20] VITALS: Ht 162.6 cm; Wt 83.2 kg
[2023-01-20 13:07] VITALS: TEMP 98.2
[2023-01-20] MEDS ORDERED: LURA20TA PO (13:16)
[2023-01-20] MEDS ORDERED: ARIP2TAB27 PO (13:16)
[2023-01-20] MEDS ORDERED: MELA5TAB40 PO (13:16)
[2023-01-20] MEDS ORDERED: RIVA2.5T3 PO (13:16)
[2023-01-20] MEDS ORDERED: TOPI25 PO (13:16)
[2023-01-20 13:39] LABS: BASOPHILS % (AUTO) 2.5 % (0.0-2.0); EOSINOPHILS % (AUTO) 1.3 % (1.0-6.0); HEMATOCRIT 38.3 % (36-46); HEMOGLOBIN 12.7 g/dL (12.0-16.0); LYMPHOCYTES # (AUTO) 1.1 K/uL (1.0-4.8); LYMPHOCYTES % (AUTO) 22.8 % (22.0-44.0); MEAN CORPUSCULAR HEMOGLOBIN 28.4 pg (26.0-34.0); MEAN CORPUSCULAR HGB CONC 33.1 G/dL (31.0-37.0); MEAN CORPUSCULAR VOLUME 86 fL (80-100); MONOCYTES # (AUTO) 0.3 K/uL (0.1-1.0); NEUTROPHILS # (AUTO) 3.2 K/uL (1.8-7.7); NEUTROPHILS % (AUTO) 66.4 % (40.0-70.0); PLATELET COUNT (AUTO) 325 K/uL (150-450); RED BLOOD CELL COUNT(AUTO) 4.46 MIL/uL (4.00-5.20); RED CELL DISTRIBUTION WIDTH 14.7 % (11.5-14.5); WHITE BLOOD COUNT (AUTO) 4.8 K/uL (4.5-11.0)
[2023-01-20 13:46] LABS: ANION GAP 17 mmol/L (8-16); CALCIUM, TOTAL 8.4 mg/dL (8.8-10.5); CARBON DIOXIDE 20 mmol/L (22-29); CHLORIDE 103 mmol/L (98-107); CREATININE 0.69 mg/dL (0.60-1.30); GLOMERULAR FILTR. RATE CALC > 60 mL/min (>60); GLUCOSE,RANDOM 134 mg/dL (70-110); POTASSIUM 3.5 mmol/L (3.5-5.1); SODIUM SERUM 140 mmol/L (136-145); UREA NITROGEN, BLOOD 9 mg/dL (7-18)
[2023-01-20 13:52] LABS: ALANINE AMINOTRANSFERASE 26 U/L (12-78); ALBUMIN 3.4 g/dL (3.4-5.0); ALKALINE PHOSPHATASE 93 U/L (46-116); ASPARTATE AMINOTRANSFERASE 22 U/L (15-37); BILIRUBIN,TOTAL 0.4 mg/dL (0.1-1.0); TOTAL PROTEIN, SERUM 7.5 g/dL (6.4-8.2)
[2023-01-20 13:53] LABS: D-DIMER 0.38 mg/L FEU (0.00-0.50); PROTHROMBIN TIME 10.7 SEC (9.4-11.6)
[2023-01-20 13:58] LABS: TROPONIN I-HIGH SENSITIVITY Less Than 4 ng/L (<51)
[2023-01-20 19:00] VITALS: PULSE 78; RESP 18; O2SAT 98
[2023-01-20] MEDS ORDERED: ALBUTEROL SULFATE 2.5 MG/0.5 ML NEB SOLUTION NEB ONE (22:45)
[2023-01-20 23:23] VITALS: PULSE 78; RESP 18; O2SAT 98
[2023-01-20] MEDS ORDERED: ALBU18HF12 IH (23:45)
[2023-01-20 23:57] LABS: COVID AG,FIA SOURCE NASAL SWAB
[2023-01-21 00:02] VITALS: BP 128/73; PULSE 84; RESP 18
[2023-01-21 00:21] LABS: SARS-COV2 (COVID) ANTIGEN,FIA Negative (Negative)
== END 2023-01-21 00:27 | disposition home or self-care (01) ==
LOC: EMS 13:05
DX: J45.909 Unspecified asthma, uncomplicated (principal); R06.02 Shortness of breath; F41.9 Anxiety disorder, unspecified; F20.9 Schizophrenia, unspecified; F15.90 Other stimulant use, unspecified, uncomplicated; Z90.49 Acquired absence of other specified parts of digestive tract; Z20.822 Contact with and (suspected) exposure to COVID-19
CPT/HCPCS: 71045; 80053; 83880; 84484; 85025; 85379; 85610; 85730; 93005; 94640; 99285; 36415-L1; 36415-TC; J7613

== ENCOUNTER 2024-08-21 14:37 | Emergency (ER) | payer OTHER, MEDICAID ==
[~2024-08-21] VITALS: Ht 162.6 cm; Wt 81.4 kg
[~2024-08-21 14:37] MED LIST changes: +ALBU18HF12 IH; +ARIP2TAB27 PO; +LURA20TA PO; +MELA5TAB40 PO; -OLAN7.5T22 PO; +RIVA15TA PO; +RIVA20TA PO; +TOPI-257 PO
[2024-08-21 14:44] VITALS: TEMP 98.5
[2024-08-21] MEDS ORDERED: LURA80TA4 PO (14:44)
[2024-08-21 17:41] VITALS: BP 130/76; PULSE 80; RESP 18; O2SAT 100
[2024-08-21 17:46] LABS: BASOPHILS % (AUTO) 1.3 % (0.0-2.0); EOSINOPHILS % (AUTO) 0.5 % (1.0-6.0); HEMATOCRIT 40.6 % (36-46); HEMOGLOBIN 13.2 g/dL (12.0-16.0); LYMPHOCYTES # (AUTO) 1.6 K/uL (1.0-4.8); LYMPHOCYTES % (AUTO) 18.2 % (22.0-44.0); MEAN CORPUSCULAR HEMOGLOBIN 26.1 pg (26.0-34.0); MEAN CORPUSCULAR HGB CONC 32.5 G/dL (31.0-37.0); MEAN CORPUSCULAR VOLUME 80 fL (80-100); MONOCYTES # (AUTO) 0.6 K/uL (0.1-1.0); MONOCYTES % (AUTO) 6.7 % (2.0-9.0); NEUTROPHILS # (AUTO) 6.4 K/uL (1.8-7.7); NEUTROPHILS % (AUTO) 73.3 % (40.0-70.0); PLATELET COUNT (AUTO) 389 K/uL (150-450); RED BLOOD CELL COUNT(AUTO) 5.05 MIL/uL (4.00-5.20); RED CELL DISTRIBUTION WIDTH 16.6 % (11.5-14.5); WHITE BLOOD COUNT (AUTO) 8.8 K/uL (4.5-11.0)
[2024-08-21 17:54] LABS: ANION GAP 6 mmol/L (8-16); CALCIUM, TOTAL 8.7 mg/dL (8.8-10.5); CARBON DIOXIDE 28 mmol/L (22-29); CHLORIDE 103 mmol/L (98-107); CREATININE 0.65 mg/dL (0.60-1.30); GLOMERULAR FILTR. RATE CALC > 60 mL/min (>60); GLUCOSE,RANDOM 75 mg/dL (70-110); POTASSIUM 3.9 mmol/L (3.5-5.1); SODIUM SERUM 137 mmol/L (136-145); UREA NITROGEN, BLOOD 8 mg/dL (7-18)
[2024-08-21 18:02] LABS: ALCOHOL, BLOOD (SERUM) < 3 mg/dL (0-10)
[2024-08-21] MEDS ORDERED: RIVA15TA PO (18:12)
[2024-08-21] MEDS: RIVAROXABAN 15 MG TABLET PO ONE (18:21)
== END 2024-08-21 18:26 | disposition home or self-care (01) ==
LOC: EMS 14:37
DX: I82.403 Acute embolism and thrombosis of unspecified deep veins of lower extremity, bilateral (principal); F20.9 Schizophrenia, unspecified; F41.9 Anxiety disorder, unspecified; Z90.49 Acquired absence of other specified parts of digestive tract; Z86.718 Personal history of other venous thrombosis and embolism; Z79.899 Other long term (current) drug therapy
CPT/HCPCS: 99284; 93970; 80048; 84703; 85025; 85379; 36415; G0480